=== PATIENT | female | born 1995 | race Caucasian/White ===

== ENCOUNTER → 2018-01-08 15:15 | Outpatient (CLI) | payer OTHER, MEDICAID, SELFPAY ==
[2018-01-09 02:35] LABS: Group B Strep DNA By PCR Negative (Negative); Internal Control PASS; Probe Check PASS; Specimen Processing Control PASS
== END ==
PROVIDERS: Visit Provider Obstetrics & Gynecology
DX: Z36.85 Encounter for antenatal screening for Streptococcus B (principal)
CPT/HCPCS: 87081; 87653

== ENCOUNTER → 2018-01-16 11:55 | Outpatient (CLI) | payer OTHER, MEDICAID, SELFPAY ==
[2018-01-16 15:57] LABS: Neisserai gonorrhoeae by PCR ND (Negative); Probe Check PASS
[2018-01-16 15:59] LABS: Chlamydia Trachomatis by PCR POSITIVE (Negative)
[2018-01-17 09:48] LABS: HIV - WCH Non-Reactive (Nonreactive)
[2018-01-17 11:27] LABS: HEPATITIS B SURFACE AG Negative (Negative); Hep C Antibodies <0.1 s/co ratio (0.0-0.9)
[2018-01-19 03:10] LABS: Rapid Plasmin Reagin (RPR) NONREACTIVE (NONREACTIVE)
== END ==
PROVIDERS: Visit Provider Obstetrics & Gynecology
DX: Z11.3 Encounter for screening for infections with a predominantly sexual mode of transmission (principal)
CPT/HCPCS: 36415; 86592; 86703; 86803; 87340; 87491; 87591

== ENCOUNTER → 2018-02-05 16:53 | Outpatient (CLI) | payer MEDICAID, SELFPAY ==
[2018-02-05 21:12] LABS: Chlamydia Trachomatis by PCR Negative (Negative); Neisserai gonorrhoeae by PCR Negative (Negative); Probe Check PASS; Sample Adequacy Control PASS; Specimen Processing Control PASS
== END ==
PROVIDERS: Visit Provider Obstetrics & Gynecology
DX: Z34.83 Encounter for supervision of other normal pregnancy, third trimester (principal); Z11.3 Encounter for screening for infections with a predominantly sexual mode of transmission; Z86.19 Personal history of other infectious and parasitic diseases
CPT/HCPCS: 87491; 87591

== ENCOUNTER 2018-02-07 13:00 | Inpatient (IN) | payer OTHER, MEDICAID, SELFPAY ==
[2018-02-07 08:15] VITALS: BMI 40.3
[2018-02-07 08:38] LABS: ROM Internal Control Test YES-OK TO RESULT pt. (Internal QC); ROM Patient Test Negative (Negative)
[2018-02-07] MEDS: 0.9% Saline Lock 10 ML Syringe IV ×2 (12:20→17:11)
[2018-02-07 12:36] LABS: Absolute Lymphocyte Count 2.33 X10^3/ul (0.83-4.51); Absolute Neutrophil Count 9.3 X10^3/uL (2.0-7.7); Basophil# 0.01 X10^3/uL; Basophil% 0.1 % (0-1); Eosinophils% 0.8 % (0-5); Hemoglobin 11.7 g/dl (12.0-15.0); Lymphocyte # 2.33 X10^3/ul (4.0); Mean Corp Hgb Conc 32.5 g/gl (32-36); Mean Corpuscular Hgb 26.5 pg (27.0-32.0); Mean Corpuscular Volume 81.6 fL (81-99); Mean Platelet Vol. 11.1 fl (6.2-12.0); Monocyte# 0.55 X10^3/uL; Monocyte% 4.5 % (0-10); Neutrophil # 9.27 X10^3/uL (2.7-7.7); Neutrophil % 75.4 % (47-70); Platelet Count 223 K/mm3 (150-450); RBC Distribution Width CV 14.8 % (11.6-14.6); Red Blood Count 4.41 M/mm3 (4.2-5.4); White Blood Count 12.3 K/mm3 (4.4-11.0)
[2018-02-07 12:37] LABS: POSITIVE COUNT NO; POSITIVE DIFFERENTIAL NO; POSITIVE MORPHOLOGY NO
[2018-02-07] MEDS: Lactated Ringers 1,000 ML 50 ML IV ×2 (17:10→22:41)
--- NOTE | 2018-02-07 17:22 | PCM.PN.OB ---
Subjective: Feeling contractions but less than before. Objective: Afeb VSS. FHR tracing CAT 1. - Physical Exam General: Alert, Oriented x3, Cooperative, No apparent distress Lungs: Clear to auscultation, Normal air movement Cardiovascular: Regular rate, Regular Rhythm Abdomen: Soft, Non Tender, Non-Distended, Gravid, Appropriate for Gestational Age Extremities: No edema Skin: No rashes Neurological: Neuro grossly intact Psych/Mental Status: Normal Affect Comment: CE 3-4/50/-3 Weight: 192 lb 14.472 oz Body Mass Index (BMI) 40.3 Laboratory Tests Past 24 Hrs 02/07/18 02/07/18 02/07/18 07:55 12:20 12:20 WBC 12.3 H RBC 4.41 Hgb 11.7 L Hct 36.0 L MCV 81.6 MCH 26.5 L MCHC 32.5 RDW 14.8 H RDW Differential 44.0 H Plt Count 223 MPV 11.1 Immature Gran % (Auto) 0.200 Neut % (Auto) 75.4 H Lymph % (Auto) 19.0 [place] % (Auto) 4.5 Eos % (Auto) 0.8 Baso % (Auto) 0.1 Absolute Neuts (auto) 9.3 H Absolute Lymphs (auto) 2.33 Total Counted Not Reportable Vag Amniotic Fld Detect Negative Blood Type O POSITIVE Antibody Screen NEGATIVE Medical Necessity - Tobacco Use Smoking Status: Former smoker Assessment/Plan AROM was performed at 1300 with meconium stained fluid noted. Contractions have spaced out. No change in cervix. She reiterates desire for trial. Discussed risks today including risk of uterine rupture which can be catastrophic for both her health and unborn baby. She accepts this risk. Will continue with labor/possible induction until lack of progress demonstrated or baby sh9ows signs of stress. She has agreed to having an epidural catheter placed but will not dose at this time so she can be more mobile. Will start pitocin to augment labor in 1-2 hours if no change.
--- NOTE | 2018-02-07 21:19 | PCM.PN.OB ---
Subjective: Relatively comfortable. Feeling contractions. Objective: Afeb VSS. FHR tracing CAT 1. - Physical Exam General: Alert, Oriented x3, Cooperative, No apparent distress Lungs: Clear to auscultation, Normal air movement Cardiovascular: Regular rate, Regular Rhythm Abdomen: Soft, Non Tender, Non-Distended, Gravid, Appropriate for Gestational Age Extremities: No edema, No Calf Tenderness Skin: No rashes Neurological: Neuro grossly intact Psych/Mental Status: Normal Affect Comment: CE 3-4 50% high Weight: 192 lb 14.472 oz Body Mass Index (BMI) 40.3 Intake and Output for Last 24 Hours 02/05/18 02/06/18 02/07/18 23:59 23:59 23:59 Intake Total 1446 / 1446 Output Total 600 / 600 Balance 846 / 846 Laboratory Tests Past 24 Hrs 02/07/18 02/07/18 02/07/18 07:55 12:20 12:20 WBC 12.3 H RBC 4.41 Hgb 11.7 L Hct 36.0 L MCV 81.6 MCH 26.5 L MCHC 32.5 RDW 14.8 H RDW Differential 44.0 H Plt Count 223 MPV 11.1 Immature Gran % (Auto) 0.200 Neut % (Auto) 75.4 H Lymph % (Auto) 19.0 [place] % (Auto) 4.5 Eos % (Auto) 0.8 Baso % (Auto) 0.1 Absolute Neuts (auto) 9.3 H Absolute Lymphs (auto) 2.33 Total Counted Not Reportable Vag Amniotic Fld Detect Negative Blood Type O POSITIVE Antibody Screen NEGATIVE Medical Necessity - Tobacco Use Smoking Status: Former smoker Assessment/Plan IUPC placed Contractions q 6-8 minutes. Will start pitocin augmentation.
[2018-02-07] MEDS: Oxytocin 30 units/NS 500 ml 30 UNITS/500 ML IV.SOLN IV (22:41)
[2018-02-08] VITALS (28 sets, daily range): BP systolic 100–124; BP diastolic 41–82; PULSE 77–109; RESP 16–18; TEMP 36.6–37.2; O2SAT 94–100
[2018-02-08] MEDS: 0.9% Normal Saline 1,000 ML 75 ML IV (01:30)
--- NOTE | 2018-02-08 03:42 | PCM.PN.OB ---
Subjective: Comfortable with epidural in place. Objective: Afeb VSS - Physical Exam General: Alert, Oriented x3, Cooperative, No apparent distress Cardiovascular: Regular rate, Regular Rhythm Abdomen: Soft, Non Tender, Non-Distended, Gravid, Appropriate for Gestational Age Extremities: No edema, No Calf Tenderness Skin: No rashes Neurological: Neuro grossly intact Psych/Mental Status: Normal Affect Comment: CE 4cm 50% high Weight: 192 lb 14.472 oz Body Mass Index (BMI) 40.3 Intake and Output for Last 24 Hours 02/06/18 02/07/18 02/08/18 23:59 23:59 23:59 Intake Total 1446 / 1446 Output Total 600 / 600 Balance 846 / 846 Laboratory Tests Past 24 Hrs 02/07/18 02/07/18 02/07/18 07:55 12:20 12:20 WBC 12.3 H RBC 4.41 Hgb 11.7 L Hct 36.0 L MCV 81.6 MCH 26.5 L MCHC 32.5 RDW 14.8 H RDW Differential 44.0 H Plt Count 223 MPV 11.1 Immature Gran % (Auto) 0.200 Neut % (Auto) 75.4 H Lymph % (Auto) 19.0 [place] % (Auto) 4.5 Eos % (Auto) 0.8 Baso % (Auto) 0.1 Absolute Neuts (auto) 9.3 H Absolute Lymphs (auto) 2.33 Total Counted Not Reportable Vag Amniotic Fld Detect Negative Blood Type O POSITIVE Antibody Screen NEGATIVE Medical Necessity - Tobacco Use Smoking Status: Former smoker Assessment/Plan Over the past 1-2 hours despite no pitocin augmentation there has been repetitive late heart rate decelerations. Despite amnioinfusion and position changes heart rate pattern has not improved. Given little cervical mash filter cloth changer the past 12+ hours and nonreassuring heart rate pattern I have recommended repeat delivery. Indications and risks discussed with Ara. She agrees to repeat C/S. Will notify anesthesia.
[2018-02-08] MEDS: Sodium Citrate/Citric Acid 30 ML UDC PO (03:50)
--- NOTE | 2018-02-08 03:53 | OP.PCM_ITS ---
- Problem List (1) Non-reassuring heart rate or rhythm affecting management of mother Status: Chronic Delivery Classification: KVNG Final JULES: 01/31/18 Final JULES Source: US <20 weeks Gestational age: 41 Weeks and 1 Days doctor who attended delivery (if requested by OB): Iris Joe Indications for : Nonreassuring Status Description of Procedure: Adhesions present between omentum and uterus. Also adhesions between bladder and lower uterine segment. Thick meconium present. Live female in vertex presentation. head noted to be high in pelvis/abdomen. Meconium stained placenta. Apgars 8/9 Amniotic Membrane Rupture Type: Artificial Amniotic Fluid Description: Moderate meconium Placenta Disposition: [facility] Drain: George to straight drain Cord Entanglement: None Nuchal Cord Compression: Without compression Cord Vessel Description: 3 Vessels Delayed cord clamping: Yes Pre-op Antibiotic Given: Ancef 2 grams IV x1 Pt instructed on risks of surgery: Bleeding, Infection, Need for Future C- Sections, Injury to surrounding structure(s) including bowel and bladder Complications: None - Admit VTE Documentation VTE Present on Admission: No VTE Mechan Device Prophylaxis: SCD's VTE Pharm Prophylaxis ordered?: No
--- NOTE | 2018-02-08 03:58 | OP.PCM_ITS ---
Problem List (1) Non-reassuring heart rate or rhythm affecting management of mother Status: Chronic Report of Operation Date of Procedure: 02/08/18 Pre-Operative Diagnosis: Nonreassuring heart rate remote from delivery Post-Operative Diagnosis: Same Surgery/Procedure Performed:: Repeat Low Transverse Section Description of Surgical Findings:: Moderate scarring of omentum to fundus of uterus and lower left uterine segment. Bladder moderately adherent to the anterior lower uterus. Normal ovaries. Live female in vertex presentation. vertex high in pelvis/abdomen. Amniotic fluid with moderate to thick meconium. Apgars 7/9. perforator operator oil well: Linda Noriega Type of Anesthesia:: Epidural Anesthesiologist: Dali Cervantes Special Medications: none Specimen's removed: placenta and cord blood gases Drains: Weldon Estimated Blood Loss (mL): 500 Fluids Replaced: 1500cc Description of Procedure: Procedures, risks, and indication reviewed with Ara prior to taking her to the OR. She was taken to the OR with IV running. She was given two grams of Ancef intravenously prior to the procedure. Her epidural was dosed. She was then prepped and draped in the supine position with a leftward tilt. A weldon catheter had been previously placed. Once anesthesia was found to be adequate a Pfannensteil skin incision was made with the scalpel over the previous scar. The underlying subcutaneous tissue was dissected down to the level of fascia using sharp and blunt dissection. The fascia was then incised in the midline and this incision was extended bilaterally with the Rivera scissors. The rectus muscles were then dissected off the upper and lower portion of the fascia with sharp and blunt dissection. The rectus muscles were in the midline the peritoneum identified and entered sharply. The peritoneal defect was enlarged using blunt and shaarp dissection taking care to avoid the bladder. A bladder blade was placed. The lower uterine segment was then incised transversely with the scalpel. Once the cavity of the uterus was entered the uterine defect was extended using blunt lateral and superior traction. The amniotic membranes were then ruptured. The head was then delivered atraumatically followed by the body. The mouth was suctioned with a bulb suction. The baby was dried and stimulated. There was an active cry shortly thereafter. The cord was then clamped and cut. The baby was handed off to the waiting nursing staff for evaluation by Dr. Elena. The omental adhesions were dissected off the fundus of the uterus. The uterus was then exteriorized. The uterine incision was then repaired in two layers with #1 vicryl. Where necessary figure of eight sutures of the same material were used to affect excellent hemostasis. The posterior cul de sac and gutters were cleared of all clot and fluid. The uterus was then returned to the abdomen. The rectus muscles were then reapproximated with 0-Vicryl suture. The fascia was closed with a running stitch of #1 Stratofix suture. The subcutaneous tissue was closed with 2-0 Vicryl. The skin was closed with a subcuticular stitch of 4-0 Monocryl. Sponge, lap, and needle counts were correct. The patient was taken to the recovery room in stable condition. Grafts/Implants Used: none - Complications none - Admit VTE Documentation VTE Present on Admission: No VTE Mechan Device Prophylaxis: SCD's VTE Pharm Prophylaxis ordered?: No
--- NOTE | 2018-02-08 04:20 | PLAC_PTH ---
PATIENT: TRACE NAVARRO LOC: [facility] U#:[id number] AGE/SX: 22/ ROOM: WP004 RE02/07/[address]: Dr. Alvin Cope MD : [id number] BED: 1 DIS: 02/10/2018 SPEC #: [id number] RECD: 02/08/18 12:14 STATUS: MALIHA ARIELLA #: [id number] MILLA: 02/08/18 04:[address]: Alvin Cope DEPT: SURGICAL PATHOLOGY RECD BY: Cristian Travis ENTERED: 02/08/18 12:14 SP TYPE: PLACENTA OTHR DR: No Primary Care Phys Tissues: Placenta, NOS Procedures: Surgery Specimen Level V HEADER OPERATION: Repeat section PRE-OP DIAGNOSIS: Nonreassuring heart rate pattern, meconium TISSUE SUBMITTED: Placenta MICROSCOPIC DIAGNOSIS Placenta: Placental disc - third trimester placenta (602 gm). - Increased calcification maternal surface. - Focal areas of peripheral infarction (largest measuring 5 cm in greatest dimension). - Increased intervillous and perivillous fibrin deposition. - Acute vasculitis of subamnionic blood vessels. Membranes ? mild acute chorioamnionitis. Umbilical cord - three blood vessels and no pathologic diagnosis. SJ:terry 02/12/18 MICROSCOPIC DESCRIPTION Slides are reviewed. GROSS DESCRIPTION SPECIMEN: PLACENTA / CLINICAL INFORMATION: A. Weight: 3.167 kg B. Gestational Age: 41 weeks C. Sex: Female PLACENTAL WEIGHT (POST FIXATION): 602 gm PLACENTAL DIMENSIONS: 19 x 17 x 3 cm PLACENTAL SHAPE: Usual ovoid PLACENTAL WEIGHT FOR GESTATIONAL AGE: Over 99th percentile MEMBRANES - Present A. Insertion: Marginal B. Site of rupture from edge: At edge of placental disc C. Color of membrane: Greenish, mucoidy consistent with meconium staining. D. Abnormalities: None UMBILICAL CORD - Present A. Color: Baumann-cee B. Insertion: Central C. Length: 32 cm D. Diameter: 1 cm E. Number of vessels: Three F. Abnormalities: Focal increased spiraling is noted. PLACENTAL DISC - Present A. Color of surface: Baumann-cee B. surface abnormalities: None C. Maternal cotyledons: Intact with minimal tears. Maternal surface shows increased speckled calcification. D. Attached retro placental clot: No clot E. Cut surface: Dark red and spongy F. Lesions: Sections reveal three baumann, indurated areas in the peripheral portion of the placenta measuring 0.5 and 2 cm in greatest dimension and 5 x 2 x 0.5 cm. Sections also reveal a central area of induration measuring 1 cm in greatest dimension. Focal firm areas are also noted. G. Separate clot: Absent SECTIONS SUBMITTED: 1. Membrane roll 2. Cord, maternal end, peripheral largest lesion 3. Cord, end, peripheral second largest lesion 4. Placental disc, and maternal surfaces, smallest peripheral lesion 5. Placental disc, and maternal surfaces, central lesion 6. Placental disc, and maternal surfaces, firm area. 7. Placental disc, and maternal surfaces, firm area. 8. Placental disc, and maternal surfaces, unremarkable cut surfaces SJ:rg 02/09/18 TC:2 CPT: 58157
[2018-02-08] MEDS: Oxytocin 30 units/NS 500 ml 30 UNITS/500 ML IV.SOLN 167 UNITS IV (06:09)
--- NOTE | 2018-02-08 08:09 | NURSING ---
epidural cath removed at this time. area looks good no drainage or bleeding at the site.
--- NOTE | 2018-02-08 08:14 | DCINST_ITS ---
Discharge Diet: No Restrictions Discharge Activity: Return to Normal Activity, May Not Drive - may drive in 7 days, May not drive while taking narcotic pain medications., May Shower Return to work on:: 04/09/18 May resume sexual activity in: 4-6 weeks Call your doctor if your incision/area has: Continuous Slow Oozing, Sudden Increased Bleeding, Increased Pain/ Swelling, Increased Redness, Foul Smelling Discharge, Swelling at the incision site Call your doctor if you observe: Fever of 101 or Higher, Inability to urinate, Inability to have a bowel movement, Using more than one pad per hour, Shortness of breath, Chest pain, Calf discomfort, Uncontrolled pain Remove Dressing in (days):: 1 Cleanse incision/area with: Soap & Water Additional Instructions: If you experience any of the following, contact your healthcare provider. * Bleeding that soaks a pad every hour for 2 hours * Fever 100.4 or higher * Unrelieved incision or abdominal pain * Swelling, redness, discharge or bleeding from your incision or episiotomy site * Your incision begins to separate * Problems urinating (including inability to urinate or burning while urinating) . * Visual changes * Severe headache * Flu-like symptoms * Pain or redness in one of both of your breasts * Pain, warmth, tenderness or swelling in your legs, especially the calf area * Frequent nausea and vomiting * Symptoms of depression or anxiety If you experience any of the following, call 911 or go to the nearest Emergency Room. * Chest pain * Problems breathing * Seizure activity * Partial or complete paralysis of a body part, slurred speech, weakness or drooping of the face, or a sudden inability to walk or hold your balance Allergies/Adverse Reactions: Allergies acetaminophen [From Darvocet-N] Allergy (Verified 02/07/18 08:16) Hives codeine Allergy (Verified 02/07/18 08:16) Hives propoxyphene [From Darvocet-N] Allergy (Verified 02/07/18 08:16) Hives Medications to take at Discharge Ibuprofen [Motrin] 800 mg PO TID PRN PRN #30 tab 02/08/18 Oxycodone [Oxyir] 5 - 10 mg PO Q4H PRN PRN 5 Days #20 tab 02/08/18 The following prescriptions were given: Oxycodone [Oxyir] 5 - 10 mg PO Q4H PRN PRN 5 Days #20 tab PRN Reason: Mod-Severe Pain (4-08/08) Ibuprofen [Motrin] 800 mg PO TID PRN PRN #30 tab PRN Reason: pain or cramping Follow-Up: Call to make an appointment with your doctor for an incision check in 1-2 weeks. You will also need a 6 week post- follow up appointment. Please Follow Up With: Alvin Cope MD When: one week Primary Care Physician: Care Physician,No Primary [Primary Care Provider] - Proposed Discharge Date: 02/10/18
[2018-02-08] MEDS: Cefazolin 1 GM/50 ML BAG IV ×2 (10:34→19:36)
[2018-02-08] MEDS: 0.9% Saline Lock 10 ML Syringe IV ×2 (11:32→19:36)
[2018-02-09] VITALS (7 sets, daily range): BP systolic 114–141; BP diastolic 62–86; PULSE 82–116; RESP 16–18; TEMP 36.7–37.5; O2SAT 97–98
[2018-02-09 04:34] LABS: Hematocrit 31.7 % (37-47); Hemoglobin 10.5 g/dl (12.0-15.0); Mean Corp Hgb Conc 33.1 g/gl (32-36); Mean Corpuscular Hgb 27.3 pg (27.0-32.0); Mean Corpuscular Volume 82.3 fL (81-99); Mean Platelet Vol. 11.5 fl (6.2-12.0); Platelet Count 185 K/mm3 (150-450); RBC Distribution Width CV 14.9 % (11.6-14.6); RBC Distribution Width SD 43.6 fl (35.1-43.9); Red Blood Count 3.85 M/mm3 (4.2-5.4); White Blood Count 14.7 K/mm3 (4.4-11.0)
[2018-02-09 04:35] LABS: Scan Indicated on CBC? Y/N NO
--- NOTE | 2018-02-09 08:20 | PCM.PN.OB ---
Subjective: No specific complaints. Bleeding light. Tolerating PO. George removed. Objective: Afeb Tmax 99.5 VSS. Hgb stable. - Physical Exam General: Alert, Oriented x3, Cooperative, No apparent distress Lungs: Clear to auscultation, Normal air movement Cardiovascular: Regular rate, Regular Rhythm Abdomen: Soft, Non Tender, Non-Distended, - - Incision dressing dry. No skin erythema. Extremities: No edema Skin: No rashes Neurological: Neuro grossly intact Psych/Mental Status: Normal Affect Comment: Lochia light Vital Signs Temp Pulse Resp BP Pulse Ox 99.5 F H 85 18 127/71 H 98 02/09/18 04:15 02/09/18 04:15 02/09/18 04:15 02/09/18 04:15 02/09/18 04:15 Oxygen Delivery Method Room Air Weight: 192 lb 14.472 oz Body Mass Index (BMI) 40.3 Intake and Output for Last 24 Hours 02/07/1802/08/18 02/09/18 23:59 23:59 23:59 Intake Total 1446 / 1446 6331 / 6331 Output Total 600 / 600 3450 / 3450 Balance 846 / 846 2881 / 2881 Laboratory Tests Past 24 Hrs 02/09/18 04:20 WBC 14.7 H RBC 3.85 L Hgb 10.5 L Hct 31.7 L MCV 82.3 MCH 27.3 MCHC 33.1 RDW 14.9 H RDW Differential 43.6 Plt Count 185 MPV 11.5 Medical Necessity - Tobacco Use Smoking Status: Former smoker Assessment/Plan Doing well on POD#1. Continue routine PO care.
[2018-02-09] MEDS: Acetaminophen 500 MG Tablet 1000 MG PO ×2 (09:51→19:47)
--- NOTE | 2018-02-09 16:17 | CASEMGMT ---
Social Work - Labor and delivery Reason for Consult: PHQ9 score of 9 Informant: Medical record and patient/mother of baby (MOB) Note: social work consult also placed by site coordinator for maternal mental health history. Full social work assessment documented in the infants chart, which is linked to MOB's chart. History: MOB reports as a teen had some depression and anxiety, which has continued to adulthood, including depression and anxiety after the of first daughter Shayla. MOB reports counseling and medication as a teen, then medication for a short time after Shayla was born, but no interventions currently. MOB admits suicidal ideation as a teen, but denies any attempts or intent. . MOB denies any history of drug or alcohol use or abuse history. Recent Family/Social Stressors: MOB moved in with own mother in September 2017, when MOB and FOB went through a rough patch. MOB reports things are going better now with FOB and both are communicating better with each other. MOB admits to some depression anxiety in the last 2 weeks, but reports is feeling happy at this time, since delivery. MOB reports was hopeful for a vaginal delivery and is still processing that had to have caesarian section. MOB reports did get farther in natural delivery this time as compared to the last, and this caesarian section was MOBs choice, so MOB is able to see some positives that plan did not go as planned. Current symptoms: Endorses for several days in the last two weeks little interest or pleasure in doing things, feeling down/depressed/hopeless, feeling bad about self, and trouble concentrating. Endorses nearly every day trouble falling asleep but also describes self to be a person who sleeps a lot anyway, and the end of increased feelings of fatigue. Endorses more than half days feeling tired or having little energy, and again perceives that could have contributed. MOB denies poor appetite, change in motor activity, or thoughts of self-harm or being better off . MOB reports since delivery has felt an improvement in mood and anxiety. MOB reports on a scale of 1-10 with 10 being the happiest, MOB would place mood at a 7 or 8. On the same scale, with 10 being high anxiety and 1 low anxiety, MOB endorses anxiety as a 2 or 3. MOB reports to feel connected to the baby as well. MOB denies any thoughts of suicide in adulthood, during this , or currently. MOB reports children are a strong motivator to live. MOB reports to cope by deep breathing and taking 5 minutes to self to regroup. MOB reports can talk to own mother, who provides both emotional and practical support to MOB. Assessment/Observations: MOB pleasant, cooperative, and friendly during social work visit. MOB holding baby throughout social work visit, attentive, gentle and loving in mannerisms. MOB gazing and smiling at baby. Eye contact normal, affect bright, and mood appearing euthymic. MOB endorses feeling connected to the baby, more so at this juncture as compared in this time period after first . Plan: MOB will return home with baby at time of discharge. Resources have been given for home going, including local mental health resources, 24 hour hotline for [facility] where MOB lives, as well as online supports for depression. -ARIEL Negron, DOG FOOD DOUGH MIXER.
[2018-02-09] MEDS: Senna/Docusate Sodium 1 Tablet PO (19:48)
[2018-02-09] MEDS: Bisacodyl 10 MG Suppository RECTAL (22:38)
[2018-02-10 01:12] VITALS: BP 132/79; PULSE 100; RESP 16; TEMP 36.6; O2SAT 97
[2018-02-10] MEDS: Ibuprofen 600 MG Tablet PO (02:45)
[2018-02-10] MEDS: oxyCODONE 5 MG Tablet PO (02:46)
--- NOTE | 2018-02-10 08:10 | PCM.PN.OB ---
Subjective: Doing well this morning. Breast feeding. Bleeding light. Pain reasonably controlled. Objective: Afeb VSS - Physical Exam General: Alert, Oriented x3, Cooperative, No apparent distress Lungs: Clear to auscultation, Normal air movement Cardiovascular: Regular rate, Regular Rhythm Abdomen: Soft, Non Tender, Non-Distended, - - Incision dressing dry Extremities: No edema Skin: No rashes Neurological: Neuro grossly intact Psych/Mental Status: Normal Affect Comment: Lochia light Vital Signs Temp Pulse Resp BP Pulse Ox 97.9 F 100 16 132/79 H 97 02/10/18 01:12 02/10/18 01:12 02/10/18 01:12 02/10/18 01:12 02/10/18 01:12 Oxygen Delivery Method Room Air Weight: 192 lb 14.472 oz Body Mass Index (BMI) 40.3 Intake and Output for Last 24 Hours 0412/18 //18 02/10/18 23:59 23:59 23:59 Intake Total 6331 / 6331 Output Total 3450 / 3450 Balance 2881 / 2881 Medical Necessity - Tobacco Use Smoking Status: Former smoker Assessment/Plan Doing well on POD#2. Cleared for discharge home today. Home going instructions and warnings given.
--- NOTE | 2018-02-10 08:14 | DS.PCM_ITS ---
Discharge Date and Diagnosis Date of Admission: 02/07/18 Date of Discharge: 02/10/18 - Primary Discharge Diagnosis S/P repeat LTCS - Secondary Discharge Diagnosis Chronic Problems Non-reassuring heart rate or rhythm affecting management of mother ( Chronic) Hospital Course and Treatment Operations: - - Repeat LTCS Procedures: - - Epidural, pitocin augmentation Summary of Care Provided: The patient is a 22 year old F admitted at 41 weeks ega in early active labor. Pitocin augmentation added with little change in cervix and eventually nonreassuring heart rate status requiring repeat C?S. Maximum cervical dilation 4 cm. Delivery of a live female withotut complication. Post operative course unremarkable. Discharged home on POD#2. Discharge Diet: No Restrictions Discharge Activity: Return to Normal Activity, May Not Drive - may drive in 7 days, May not drive while taking narcotic pain medications., May Shower Return to work on:: 04/09/18 May resume sexual activity in: 4-6 weeks Call your doctor if your incision/area has: Continuous Slow Oozing, Sudden Increased Bleeding, Increased Pain/ Swelling, Increased Redness, Foul Smelling Discharge, Swelling at the incision site Call your doctor if you observe: Fever of 101 or Higher, Inability to urinate, Inability to have a bowel movement, Using more than one pad per hour, Shortness of breath, Chest pain, Calf discomfort, Uncontrolled pain Remove Dressing in (days):: 1 Cleanse incision/area with: Soap & Water Home Medications: Medications to take at Discharge RX: Ibuprofen [Motrin] 800 mg PO TID PRN PRN #30 tab 02/08/18 RX: Oxycodone [Oxyir] 5 - 10 mg PO Q4H PRN PRN 5 Days #20 tab 02/08/18 Following Prescrptions Were Given to Patient: RX: Oxycodone [Oxyir] 5 - 10 mg PO Q4H PRN PRN 5 Days #20 tab PRN Reason: Mod-Severe Pain () RX: Ibuprofen [Motrin] 800 mg PO TID PRN PRN #30 tab PRN Reason: pain or cramping Primary Care Physician: Care Physician,No Primary [Primary Care Provider] - Please Follow Up With: Alvin Cope MD When: one week Disposition: Home Minutes spent on discharge:: 15 Patient Condition:: Good Medical Necessity - Tobacco Use Smoking Status: Former smoker Meaningful Use Info Meaningful Use Diagnoses (Choose all that apply): None applicable
[2018-02-10 10:00] VITALS: BP 130/83; PULSE 100; RESP 18; TEMP 36.3
[2018-02-10] MEDS: Acetaminophen 500 MG Tablet 1000 MG PO (10:20)
[2018-02-10 11:00] VITALS: BP 130/83; PULSE 100; RESP 18; TEMP 36.3
[2018-02-13 07:08] LABS: Pathology Specimen OB SEE PATHOLOGY REPORT
== END 2018-02-10 11:00 | disposition home or self-care (01) | DRG 766 ==
LOC: WPOUT 13:11 → WP 02-08 04:29
PROVIDERS: Admitting Provider Obstetrics & Gynecology; Visit Provider Obstetrics & Gynecology
DX: O34.211 Maternal care for low transverse scar from previous cesarean delivery (principal); O76 Abnormality in fetal heart rate and rhythm complicating labor and delivery; O66.41 Failed attempted vaginal birth after previous cesarean delivery; O77.0 Labor and delivery complicated by meconium in amniotic fluid; Z87.442 Personal history of urinary calculi; Z87.440 Personal history of urinary (tract) infections; Z87.891 Personal history of nicotine dependence; Z3A.41 41 weeks gestation of pregnancy; Z37.0 Single live birth
CPT/HCPCS: 59025; 59050; 76815; 84112; 85025; 85027; 86850; 86900; 88307; 99218; J7030; J7040; J7120; A4216; G0378; J2405

== ENCOUNTER → 2018-03-23 10:40 | Outpatient (CLI) | payer MEDICAID, SELFPAY ==
[2018-03-23 13:46] LABS: hCG Titer Quant., Serum < 1 mIU/mL (<9 non-preg)
[2018-03-23 14:05] LABS: Progesterone Level 0.14 ng/mL (See Comment)
== END ==
PROVIDERS: Visit Provider Obstetrics & Gynecology
DX: Z30.9 Encounter for contraceptive management, unspecified (principal)
CPT/HCPCS: 36415; 84144; 84702